=== PATIENT | male | born 1970 | race Caucasian/White ===

== ENCOUNTER 2024-09-18 10:10 | Emergency (ER) | payer BC, SELFPAY ==
[2024-09-18 10:15] VITALS: BP 168/101; PULSE 89; RESP 16; TEMP 36.6; O2SAT 100
--- NOTE | 2024-09-18 12:07 | EX.ED.VIS.EY ---
HPI History of Present Illness Chief Complaint: Eye Problem Informant: patient Narrative Narrative: Patient is a 54 year old male with no significant past medical history presenting with 5 days of right sided facial weakness and right eye irritation and watering. Denies any history of this before. Family came in today because his eyes been bothering him so much has been crusting. Does have an eye doctor. Denies any hearing changes. Denies any other numbness or tingling. No other complaints or concerns at this time. PFSH PFSH Home Medications ?Medication ?Instructions ?Recorded ?Last Taken ?Type peg 400-propylene glycol 0.4 %-0.3 2 drp ophthalmic (eye) Q1H PRN dry 09/18/24 Unknown Rx % eye gel drops (Systane Gel) eye #10 mL prednisone 20 mg tablet 60 mg (3 x 20 mg) PO DAILY #18 09/18/24 Unknown Rx TABLETS valacyclovir 1 gram tablet 1,000 mg PO Q8H #21 tabs 09/18/24 Unknown Rx ROS ROS ED Constitutional Constitutional ED: Denies chills or fever(s) Eyes Eyes: Reports other Details: Right eye irritation, difficulty blinking, eye watering ; Denies blurry vision ENT ENT ED: Denies ear pain, rhinorrhea or sore throat Gastrointestinal Gastrointestinal: Denies nausea or vomiting Integumentary Denies rash Neurologic Neurologic: Reports other Details: Right facial droop with involvement of the forehead ; Denies headache(s), paresthesias or weakness Hematologic/Lymphatic Hematologic/Lymphatic: Denies easy bleeding or easy bruising EXAM Physical Exam Const Vital Signs: 09/18/24 10:15 Temperature 97.9 F Temperature Source Oral Pulse Rate 89 Respiratory Rate 16 Blood Pressure 168/101 H Blood Pressure Mean 123 Pulse Ox 100 Oxygen Delivery Method Room Air Positive well nourished and well developed General Appearance ED: well developed and NAD HEENT Reports TM's clear HEENT Narrative: No rash on the face appreciate atraumatic Nose: external nose normal Tympanic Membrane ED: Yes TM's clear Eyes Eyes Narrative: EOMI, PERRL. Mild edema and irritation of the right eyelids. Mild injection of the right eye. Patient has incomplete blinking of the right eye. On slit-lamp exam there is no fluorescein uptake. No corneal abrasion appreciated. Neck supple Resp normal respiratory effort Cardio regular rate and regular rhythm Neuro oriented x3 Neuro Narrative: Palsy of cranial nerves V present on the right consistent with a Lee's palsy. Other cranial nerves all intact. Sensation intact. NIH equals 0. Normal coordination, normal strength and sensation of the extremities. Speech normal. Sensorium / Orientation: alert Skin no wounds Lesions: no lesions Rashes: no rashes MDM MDM MDM Narrative Medical decision making narrative: Patient evaluated with 5 days of right facial droop and eye watering. Physical exam hide except the Lee's palsy. Slightly exam does not show associated corneal abrasion. Will treat with steroids, antivirals, eye patching and eyedrops. Encouraged follow-up with family doctor as well as ophthalmology. States he does have an eye doctor as he is wearing glasses since he was a child. Denies any history of diabetes. Counseled that medication might be less effective given that it has been going on for 5 days but it is worth a try. He verbalizes understanding of this. Discussed the risk benefits of steroids. Discussed that time will tell if his Lee's palsy resolves or not. Discharge Plan Triage Chief Complaint: Eye Problem Other Complaint: Weakness ED Provider: Edelmira Bowser Dx/Rx/DC Orders Clinical Impression: Right-sided Lee's palsy Instructions: ED Lee's Palsy Prescriptions: New prednisone 20 mg tablet 60 mg PO DAILY Qty: 18 0RF valacyclovir 1 gram tablet 1,000 mg PO Q8H Qty: 21 0RF Systane Gel 0.4-0.3 % drops,gel 2 drp ophthalmic (eye) Q1H PRN (Reason: dry eye) Qty: 10 1RF Primary Care Provider: Care Physician,No Primary Referrals: Jelani Pete MD [Med Staff - Active Staff] - Linda Cam [Non-Staff] - Care Physician,No Primary [Primary Care Provider] - Activity Restrictions/Additional Instructions: You been given eyedrops that are more of a gel consistency to help keep your eyes longer. You may also find the [id number] Systane lubricating eyedrops helpful. You can put on a course of steroids and antiviral to hopefully help resolve the Lee's palsy. Patch your eye at night to prevent scratching your eye. Apply cool compresses around the eye throughout the day as needed for eyelid irritation. Print Language: [place] Disposition Disposition: Home, Self Care
[2024-09-18 12:15] VITALS: BP 183/109; PULSE 87; RESP 18; O2SAT 98
[2024-09-18] MEDS: predniSONE 20 MG Tablet 60 MG PO (12:26)
[2024-09-18] MEDS: Fluorescein 1 MG STRIP 1 STRIP OPHTHALMIC (12:27)
[2024-09-18 12:36] VITALS: BP 181/101; PULSE 89; RESP 16; TEMP 36.9; O2SAT 97
== END 2024-09-18 12:37 | disposition home or self-care (01) ==
PROVIDERS: Emergency Provider Emergency Medicine; Visit Provider Emergency Medicine
DX: R53.1 Weakness (principal); G51.0 Bell's palsy
CPT/HCPCS: 99283; A4216